=== PATIENT | female | born 1935 | race Caucasian/White ===

== ENCOUNTER 2016-05-27 15:42 | Inpatient (IN) | payer MEDICARE ==
[~2016-05-27] VITALS: Ht 154.9 cm; Wt 61.6 kg
[~2016-05-27 15:42] MED LIST: CARB200T14 PO; ESTR1TAB PO; FIORIC PO; HYDR-2768 PO; LORA1TAB PO; MINO50TA PO; PRAV40TA2 PO; SUMA25TA2 PO; SYNT50TA PO; WAL-10TA2 PO
[2016-05-27 15:59] VITALS: BP 208/96; PULSE 68; RESP 20; TEMP 98.6; O2SAT 100
[2016-05-27 16:10] VITALS: BP 174/97; PULSE 64; RESP 16; O2SAT 98
--- NOTE | 2016-05-27 16:12 | PD ---
HPI Chief Complaint: Syncope/Near-Syncope Time Seen by Provider: 15:46 Travel History International Travel<30 days: No Contact w/Intl Traveler<30days: No Traveled to known affect area: No History of Present Illness HPI This is a 58-year-old female who has a history of mitral valve prolapse presents to the emergency department having had 2 episodes of syncope in the past 2 weeks. She says her first episode occurred on May 09. She was seen at [facility] where she had an EKG, labs and a chest x-ray as well as a CT scan performed all which were reassuring. She was not kept overnight and was discharged. She tried to follow-up with Dr. Mix who ordered an outpatient Holter monitor and an echo but was unable to see her in the office because he was on vacation. She subsequently had a second episode of syncope this weekend when she was going to talk to her neighbors. She said she felt dizzy all of a sudden and then passed out. She didn't hit her head at that time. She had no associated chest pain or shortness of breath. She also has had blood pressure that's been running high in the 180s to 200s at home. She didn't want to come to the hospital but her neighbors were very concerned about her and called EMS who took her to the emergency department. PFSH Past Medical History Cardiovascular Problems: Yes Respiratory: Yes ?: Not Past Surgical History Gynecologic Surgery: Yes (left breast bx 1969, 1999 AND 2013; HYSTERECTOMY 1976 ) Hysterectomy: Yes (TOTAL) Social History Alcohol Use: No Tobacco Use: Yes (2ppweek) Substance Use: No Allergies-Medications (Allergen,Severity, Reaction): Coded Allergies: No Known Allergies (Unverified , 11/01/13) Reported Meds & Prescriptions Reported Meds & Active Scripts Active Reported Carbamazepine Er (Carbamazepine) 200 Mg Cap 100 Mg PO BID Minocycline Hcl (Minocycline HCl) 50 Mg Cap 50 Mg PO BID Pravachol 40 Mg Tab (Pravastatin Sodium) 40 Mg Tab 40 Mg PO DAILY Synthroid (Levothyroxine Sodium) 50 Mcg Tab 50 Mcg PO DAILY Hctz (Hydrochlorothiazide) 25 Mg Tab 25 Mg PO DAILY Lorazepam 1 Mg Tab 1 Mg PO HS Estradiol 1 Mg Tab 1 Mg PO DAILY Loratadine 10 Mg Tab 10 Mg PO DAILY Fioricet Tab (Acetaminophen/Butalbital/Caffeine) 1 Tab Tab 1 Tab PO Q4H PRN Sumatriptan Succinate 25 Mg Tab 100 Mg PO ONCE Review of Systems Except as stated in HPI: all other systems reviewed are Neg Physical Exam Narrative GENERAL:Well appearing, no acute distress SKIN: Warm and dry. HEAD: Atraumatic. Normocephalic. EYES: Pupils equal and round. No injection or drainage. ENT: Moist mucous membranes NECK: Trachea midline. CARDIOVASCULAR: Regular rate and rhythm. No murmur appreciated. RESPIRATORY: Clear to auscultation. Breath sounds equal bilaterally. GASTROINTESTINAL: Abdomen soft, non-tender, nondistended. MUSCULOSKELETAL: No obvious deformities. NEUROLOGICAL: Awake and alert. No obvious cranial nerve deficits. Moving all extremities. PSYCHIATRIC: Appropriate mood and affect; insight and judgment normal. Data Data Last Documented VS Vital Signs Date Time Temp Pulse Resp B/P Pulse Ox O2 Delivery O2 Flow Rate FiO2 05/27/16 16:13 100 Room Air 05/27/16 16:10 64 16 174/97 05/27/16 15:59 98.6 Orders Complete Blood Count With Diff (05/27/16 16:01) Comprehensive Metabolic Panel (05/27/16 16:01) Magnesium (Mg) (05/27/16 16:01) B-Type Natriuretic Peptide (05/27/16 16:01) Troponin I (05/27/16 16:01) Urinalysis - C+S If Indicated (05/27/16 16:01) Ecg Monitoring (05/27/16 16:01) Iv Access Insert/Monitor (05/27/16 16:01) Oximetry (05/27/16 16:01) Sodium Chloride 0.9% Flush (Ns Flush) (05/27/16 16:15) Electrocardiogram (05/27/16 ) Enalaprilat Inj (Vasotec Inj) (05/27/16 17:00) Labs Laboratory Tests Test 05/27/16 05/27/16 16:20 16:31 White Blood Count 9.2 TH/MM3 Red Blood Count 4.25 MIL/MM3 Hemoglobin 13.2 GM/DL Hematocrit 39.5 % Mean Corpuscular Volume 92.7 FL Mean Corpuscular Hemoglobin 31.0 PG Mean Corpuscular Hemoglobin 33.4 % Concent Red Cell Distribution Width 14.1 % Platelet Count 265 TH/MM3 Mean Platelet Volume 9.7 FL Neutrophils (%) (Auto) 65.3 % Lymphocytes (%) (Auto) 26.1 % Monocytes (%) (Auto) 6.9 % Eosinophils (%) (Auto) 1.3 % Basophils (%) (Auto) 0.4 % Neutrophils # (Auto) 6.0 TH/MM3 Lymphocytes # (Auto) 2.4 TH/MM3 Monocytes # (Auto) 0.6 TH/MM3 Eosinophils # (Auto) 0.1 TH/MM3 Basophils # (Auto) 0.0 TH/MM3 CBC Comment DIFF FINAL Differential Comment Sodium Level 139 MEQ/L Potassium Level 3.8 MEQ/L Chloride Level 101 MEQ/L Carbon Dioxide Level 28.9 MEQ/L Anion Gap 9 MEQ/L Blood Urea Nitrogen 20 MG/DL Creatinine 0.82 MG/DL Estimat Glomerular Filtration 67 ML/MIN Rate Random Glucose 85 MG/DL Calcium Level 9.7 MG/DL Magnesium Level 2.0 MG/DL Total Bilirubin 0.4 MG/DL Aspartate Amino Transf 25 U/L (AST/SGOT) Alanine Aminotransferase 22 U/L (ALT/SGPT) Alkaline Phosphatase 53 U/L Troponin I LESS THAN 0.02 NG/ML B-Type Natriuretic Peptide 63 PG/ML Total Protein 7.5 GM/DL Albumin 4.2 GM/DL Urine Color LIGHT-YELLOW Urine Turbidity CLEAR Urine pH 6.5 Urine Specific [place] 1.005 Urine Protein NEG mg/dL Urine Glucose (UA) NEG mg/dL Urine Ketones NEG mg/dL Urine Occult Blood NEG Urine Nitrite NEG Urine Bilirubin NEG Urine Urobilinogen LESS THAN 2.0 MG/DL Urine Leukocyte Esterase NEG Urine RBC 1 /hpf Urine WBC 1 /hpf Microscopic Urinalysis Comment CULT NOT INDICATED MDM Medical Decision Making Medical Screen Exam Complete: Yes Emergency Medical Condition: Yes Interpretation(s) ekg: rbbb, inferior st depressions no leukocytosis electrolytes within normal limits troponin <.02 bnp 63 Differential Diagnosis Arrhythmia, valvular disease, congestive heart failure, dehydration, urinary tract infection Narrative Course This is an 80-year-old female who presents to the emergency department having had 2 episodes of syncope in the past 2 weeks. She also has been very weak and lightheaded per her neighbors and family and she's not acting herself. She's had persistently high blood pressure over the past several days. She has a history of mitral valve prolapse. She's been trying to get worked up as an outpatient with cardiology but she's been getting sicker republican getting her test completed. She was placed on a monitor and an IV was established. EKG demonstrates a right bundle branch block with some nonspecific ST changes. Labs are all reassuring with a normal troponin and BNP. I think patient requires observation on telemetry, echo, and syncope evaluation as an inpatient given she's had 2 episodes of syncope at this point and she seems to becoming increasingly symptomatic. Diagnosis Primary Impression: Syncope Qualified Code: R55 - Syncope, unspecified syncope type Admitting Information Admitting Physician Requests: Observation Zoila Singh MD May 27, 2016 16:12
[2016-05-27 16:13] VITALS: O2SAT 100
[2016-05-27] MEDS ORDERED: SODIUM CHLORIDE 0.9% FLUSH 5 ML FLUSH IVF PRN (16:15)
[2016-05-27 16:41] LABS: BASOPHIL % 0.4 % (0.0-2.0); EOSINOPHIL # 0.1 TH/MM3 (0-0.4); EOSINOPHIL % 1.3 % (0.0-4.0); HEMATOCRIT 39.5 % (35.0-46.0); HEMO FLAGS DIFF FINAL; LYMPH % 26.1 % (9.0-44.0); LYMPHOCYTE # 2.4 TH/MM3 (1.0-4.8); MEAN CELL VOLUME 92.7 FL (80.0-100.0); MEAN CORPUSCULAR HGB CONC 33.4 % (32.0-36.0); MONO % 6.9 % (0.0-8.0); NEUT % 65.3 % (16.0-70.0); PLATELET COUNT 265 TH/MM3 (150-450); RED BLOOD COUNT 4.25 MIL/MM3 (4.00-5.30); RED CELL DISTRIBUTION WIDTH 14.1 % (11.6-17.2); WHITE BLOOD COUNT 9.2 TH/MM3 (4.0-11.0)
[2016-05-27 16:46] LABS: BLOOD, URINE NEG (NEG); COMMENT (UR) CULT NOT INDICATED; CULTURE IF INDICATED CULT NOT INDICATED; GLUCOSE,URINE NEG (NEG); KETONE, URINE NEG (NEG); NITRITE,URINE NEG (NEG); PH, URINE 6.5 (5.0-8.5); URINE COLOR LIGHT-YELLOW (YELLW/STRAW)
[2016-05-27] MEDS ORDERED: ENALAPRILAT 2.5 MG/2 ML VIAL IV PUSH ONE (17:00)
[2016-05-27 17:13] LABS: ANION GAP 9 MEQ/L (5-15); AST (GOT) 25 U/L (15-37); BICARBONATE 28.9 MEQ/L (21.0-32.0); BLOOD UREA NITROGEN 20 MG/DL (7-18); CHLORIDE 101 MEQ/L (98-107); GLOMERULAR FILTRATION RATE 67 ML/MIN (>89); POTASSIUM 3.8 MEQ/L (3.5-5.1); SODIUM (NA) 139 MEQ/L (136-145)
[2016-05-27 17:46] LABS: ALKALINE PHOSPHATASE 53 U/L (45-117); ALT (GPT) 22 U/L (10-53); TOTAL BILIRUBIN ADULT 0.4 MG/DL (0.2-1.0)
[2016-05-27 18:00] VITALS: BP 180/97; PULSE 78; RESP 18; O2SAT 99
[2016-05-27] MEDS ORDERED: NALOXONE HCL 0.4 MG/ML AMP IV PRN (18:00)
[2016-05-27] MEDS ORDERED: ONDANSETRON HCL 4 MG/2 ML VIAL IVP PRN (18:00)
[2016-05-27] MEDS ORDERED: ACETAMINOPHEN 325 MG TAB PO PRN (18:00)
[2016-05-27] MEDS ORDERED: SODIUM CHLORIDE 0.9% FLUSH 5 ML FLUSH FLUSH PRN (18:00)
[2016-05-27] MEDS ORDERED: MAGNESIUM HYDROXIDE SUSP 30 ML CUP PO PRN (18:00)
[2016-05-27] MEDS ORDERED: LORA10TA PO (18:52)
[2016-05-27] MEDS ORDERED: SUMAtriptan SUCCINATE 50 MG TAB PO ONE (19:30)
[2016-05-27 19:46] LABS: FREE T4 1.32 NG/DL (0.76-1.46)
--- NOTE | 2016-05-27 19:46 | HHI.HP ---
HPI Service [facility] Hospitalists Primary Care Physician Golden Ring MD Admission Diagnosis syncope Chief Complaint: syncope Travel History International Travel<30 Days: No Contact w/Intl Traveler <30 Da: No Traveled to Known Affected Are: No History of Present Illness This is a 58-year-old female who has a history of mitral valve prolapse presents to the emergency department having had 2 episodes of syncope in the past 2 weeks. She says her first episode occurred on May 09. She was seen at [facility] where she had an EKG, labs and a chest x-ray as well as a CT scan performed all which were reassuring. She was not kept overnight and was discharged. She tried to follow-up with Dr. Mix who ordered an outpatient Holter monitor and an echo but was unable to see her in the office because he was on vacation. She subsequently had a second episode of syncope this weekend when she was going to talk to her neighbors. She said she felt dizzy all of a sudden and then passed out. She didn't hit her head at that time. She had no associated chest pain or shortness of breath. She also has had blood pressure that's been running high in the 180s to 200s at home. She didn't want to come to the hospital but her neighbors were very concerned about her and called EMS who took her to the emergency department. Review of Systems Constitutional: DENIES: Diaphoretic episodes, Fatigue, Fever, Weight gain, Weight loss, Chills, Dizziness, Change in appetite, Night Sweats Endocrine: DENIES: Heat/cold intolerance, Polydipsia, Polyuria, Polyphagia Eyes: DENIES: Blurred vision, Diplopia, Eye inflammation, Eye pain, Vision loss , Photosensitivity, Double Vision Ears, nose, mouth, throat: DENIES: Tinnitus, Hearing loss, Vertigo, Nasal discharge, Oral lesions, Throat pain, Hoarseness, Ear Pain, Running Nose, Epistaxis, Sinus Pain, Toothache, Odynophagia Respiratory: DENIES: Apneas, Cough, Snoring, Wheezing, Hemoptysis, Sputum production, Shortness of breath Cardiovascular: DENIES: Chest pain, Palpitations, Syncope, Dyspnea on Exertion , PND, Lower Extremity Edema, Orthopnea, Claudication Gastrointestinal: DENIES: Abdominal pain, Black stools, Bloody stools, BRB per rectum, Constipation, Diarrhea, GERD, Nausea, Reflux, Vomiting, Difficulty Swallowing, Anorexia Genitourinary: DENIES: Sexual dysfunction, Urinary frequency, Urinary incontinence, Urgency, Hematuria, Dysuria, Nocturia Musculoskeletal: DENIES: Joint pain, Muscle aches, Stiffness, Joint Swelling, Back pain, Neck pain Hematologic/lymphatic: DENIES: Bruising, Lymphadenopathy Immunologic/allergic: DENIES: Eczema, Urticaria Neurologic: DENIES: Abnormal gait, Headache, Localized weakness, Paresthesias, Seizures, Speech Problems, Tremor, Poor Balance Psychiatric: DENIES: Anxiety, Confusion, Mood changes, Depression, Hallucinations, Agitation, Suicidal Ideation, Homicidal Ideation, Delusions, History of Bipolar, History of Schizophrenia Past Family Social History Past Medical History - hyperlipidemia - COPD - anxiety Reported Medications Reported Meds & Active Scripts Active Reported Loratadine 10 Mg Tab 10 Mg PO DAILY Allergies: Coded Allergies: No Known Allergies (Unverified , 11/01/13) Family History non- contributory Social History - smoker - no etoh - no illicit drugs Physical Exam Vital Signs Vital Signs Date Time Temp Pulse Resp B/P Pulse Ox O2 Delivery O2 Flow Rate FiO2 05/27/16 18:00 78 18 180/97 99 Room Air 05/27/16 17:49 64 99 Room Air 05/27/16 16:13 100 Room Air 05/27/16 16:10 64 16 174/97 98 Room Air 05/27/16 15:59 98.6 68 20 208/96 100 Physical Exam GENERAL: This is a well-nourished, well-developed patient, in no apparent distress. SKIN: No rashes, ecchymoses or lesions. Cool and dry. HEAD: Atraumatic. Normocephalic. No temporal or scalp tenderness. EYES: Pupils equal round and reactive. Extraocular motions intact. No scleral icterus. No injection or drainage. ENT: Nose without bleeding, purulent drainage or septal hematoma. Throat without erythema, tonsillar hypertrophy or exudate. Uvula midline. Airway patent. NECK: Trachea midline. No JVD or lymphadenopathy. Supple, nontender, no meningeal signs. CARDIOVASCULAR: Regular rate and rhythm without murmurs, gallops, or rubs. RESPIRATORY: Clear to auscultation. Breath sounds equal bilaterally. No wheezes , rales, or rhonchi. GASTROINTESTINAL: Abdomen soft, non-tender, nondistended. No hepato-splenomegaly , or palpable masses. No guarding. MUSCULOSKELETAL: Extremities without clubbing, cyanosis, or edema. No joint tenderness, effusion, or edema noted. No calf tenderness. Negative Homans sign bilaterally. NEUROLOGICAL: Awake and alert. Cranial nerves II through XII intact. Motor and sensory grossly within normal limits. Five out of 5 muscle strength in all muscle groups. Normal speech. Laboratory Laboratory Tests Test 05/27/16 05/27/16 05/27/16 16:20 16:31 18:40 White Blood Count 9.2 Red Blood Count 4.25 Hemoglobin 13.2 Hematocrit 39.5 Mean Corpuscular Volume 92.7 Mean Corpuscular Hemoglobin 31.0 Mean Corpuscular Hemoglobin 33.4 Concent Red Cell Distribution Width 14.1 Platelet Count 265 Mean Platelet Volume 9.7 Neutrophils (%) (Auto) 65.3 Lymphocytes (%) (Auto) 26.1 Monocytes (%) (Auto) 6.9 Eosinophils (%) (Auto) 1.3 Basophils (%) (Auto) 0.4 Neutrophils # (Auto) 6.0 Lymphocytes # (Auto) 2.4 Monocytes # (Auto) 0.6 Eosinophils # (Auto) 0.1 Basophils # (Auto) 0.0 CBC Comment DIFF FINAL Differential Comment Sodium Level 139 Potassium Level 3.8 Chloride Level 101 Carbon Dioxide Level 28.9 Anion Gap 9 Blood Urea Nitrogen 20 Creatinine 0.82 Estimat Glomerular Filtration 67 Rate Random Glucose 85 Calcium Level 9.7 Magnesium Level 2.0 Total Bilirubin 0.4 Aspartate Amino Transf 25 (AST/SGOT) Alanine Aminotransferase 22 (ALT/SGPT) Alkaline Phosphatase 53 Troponin I LESS THAN 0.02 B-Type Natriuretic Peptide 63 Total Protein 7.5 Albumin 4.2 Urine Color LIGHT-YELLOW Urine Turbidity CLEAR Urine pH 6.5 Urine Specific [place] 1.005 Urine Protein NEG Urine Glucose (UA) NEG Urine Ketones NEG Urine Occult Blood NEG Urine Nitrite NEG Urine Bilirubin NEG Urine Urobilinogen LESS THAN 2.0 Urine Leukocyte Esterase NEG Urine RBC 1 Urine WBC 1 Microscopic Urinalysis Comment CULT NOT INDICATED Ammonia LESS THAN 10 Result Diagram: 05/27/16 1620 05/27/16 1620 Septic Shock Reassessment Heart: Regular rate and rhythm Lungs: Clear Skin: Warm Peripheral Pulses: Bounding Right Radial Bounding Left Radial Bounding Right Popliteal Bounding Left Popliteal Bounding Right Dorsalis Pedis Bounding Left Dorsalis Pedis Bounding Right Posterior Tibial Bounding Left Posterior Tibial Capillary Refill: Brisk Assessment and Plan Problem List: (1) Syncope Status: Acute Plan: - obtain echocardiogram - obtain holter monitor - observe on telemetry - no anemia - obtain TSH, free T4, b12, folate, rpr - PT evaluation (2) Hypothyroid Status: Acute Plan: - synthroid (3) HTN (hypertension) Status: Acute Plan: - hctz (4) Migraine Status: Acute Plan: - fioricet, tegretol Physician Certification 2 Midnight Certification Type: Admission for Inpatient Services Order for Inpatient Services The services are ordered in accordance with Medicare regulations or non- Medicare payer requirements, as applicable. In the case of services not specified as inpatient-only, they are appropriately provided as inpatient services in accordance with the 2-midnight benchmark. Estimated LOS (days): 3 3 days is the estimated time the patient will need to remain in the hospital, assuming treatment plan goals are met and no additional complications. Post-Hospital Plan: Not yet determined Problem Qualifiers (1) Syncope: Qualified Code: R55 - Syncope, unspecified syncope type (2) Hypothyroid: Qualified Code: E03.9 - Hypothyroidism, unspecified type (3) HTN (hypertension): Qualified Code: I10 - Essential hypertension (4) Migraine: Richard Marcos DO May 27, 2016 19:45
[2016-05-27] MEDS ORDERED: ENALAPRILAT 1.25 MG/ML VIAL IV PRN (20:45)
[2016-05-27] MEDS ORDERED: cloNIDine HCL 0.2 MG TAB PO PRN (20:45)
[2016-05-27] MEDS ORDERED: CARBAMAZEPINE 100 MG PO SCH (21:00)
[2016-05-27] MEDS: LORazepam 1 MG TAB PO SCH (21:00)
[2016-05-27] MEDS: SODIUM CHLORIDE 0.9% FLUSH 5 ML FLUSH FLUSH SCH (21:30)
[2016-05-27] MEDS: PRAVASTATIN SOD 40 MG TAB PO SCH (21:30)
[2016-05-27] MEDS: MINOCYCLINE HCL 50 MG CAP PO SCH (21:31)
[2016-05-27] MEDS ORDERED: LEVO.05 PO (23:15)
[2016-05-27] MEDS ORDERED: HYDR25TA5 PO (23:15)
[2016-05-27] MEDS ORDERED: BIOT50005 PO (23:15)
[2016-05-27] MEDS ORDERED: PRAV40TA2 PO (23:15)
[2016-05-27] MEDS ORDERED: MIRTA15 PO (23:15)
[2016-05-27] MEDS ORDERED: MAGN400C2 (23:15)
[2016-05-27] MEDS ORDERED: MULT1CHW70 (23:15)
[2016-05-27 23:59] VITALS: BP 122/66; PULSE 71; RESP 18; O2SAT 99
--- NOTE | 2016-05-27 23:59 | RADRPT ---
EXAM DATE/TIME: 05/27/2016 22:13 [facility] COMPARISON: No previous studies available for comparison. INDICATIONS : Syncope. MEDICAL HISTORY : Hypertension. Mitral valve prolapse. SURGICAL HISTORY : Hysterectomy. Left breast biopsy. ENCOUNTER: Initial ACUITY: 1 day PAIN SCORE: 0/10 LOCATION: Bilateral neck PEAK SYSTOLIC VELOCITIES (cm/sec): ICA/CCA RATIO: Right: 1.5 Left: 1.0 ICA: Right: 92 Left: 77 CCA: Right: 62 Left: 76 ECA: Right: 42 Left: 58 VERTEBRAL: Right: 51 antegrade Left: 32 antegrade Elevated flow velocities and ICA/CCA ratios have been found to correlate with increased degrees of vessel stenosis, calculated as percentage of diameter relative to a normal segment of distal ICA/CCA FINDINGS: RIGHT CAROTID: No significant stenosis is visualized. The waveforms are within normal limits. LEFT CAROTID: No significant stenosis is visualized. The waveforms are within normal limits. VERTEBRAL ARTERIES: Antegrade flow is seen in both vertebral arteries. MISCELLANEOUS: None. CONCLUSION: No evidence of flow-limiting carotid stenosis. Husam Durand MD on May 27, 2016 at 23:56 Board Certified Radiologist. This report was verified electronically.
[2016-05-28] VITALS (8 sets, daily range): BP systolic 89–134; BP diastolic 52–77; PULSE 60–84; RESP 16–18; TEMP 97.4–98.4; O2SAT 94–98
[2016-05-28] MEDS: ACETAMIN 325 MG/BUTALBITAL 50 MG/CAFFEINE 40 MG TAB PO PRN ×2 (04:02→20:58)
[2016-05-28] MEDS: LEVOTHYROXINE SODIUM 50 MCG TAB PO SCH (05:30)
[2016-05-28] MEDS ORDERED: ASPI1TAB69 PO (08:36)
[2016-05-28] MEDS: SODIUM CHLORIDE 0.9% FLUSH 5 ML FLUSH FLUSH SCH ×2 (08:38→21:21)
[2016-05-28] MEDS: HYDROCHLOROTHIAZIDE 25 MG TAB PO SCH (08:39)
[2016-05-28] MEDS: PRAVASTATIN SOD 40 MG TAB PO SCH (08:42)
[2016-05-28] MEDS: LORATADINE 10 MG TAB PO SCH (08:42)
[2016-05-28] MEDS: MINOCYCLINE HCL 50 MG CAP PO SCH ×4 (09:00→20:56)
[2016-05-28 10:35] LABS: RAPID PLASMA REAGIN SCREEN NON-REACTIVE (NON-REACTVE)
--- NOTE | 2016-05-28 10:36 | EKG ---
Date Performed: 05/27/2016 Time Performed: 16:14:59 PTAGE: 80 years EKG: Sinus rhythm POSSIBLE LEFT ATRIAL ENLARGEMENT BORDERLINE LEFT AXIS DEVIATION RIGHT BUNDLE BRANCH BLOCK ABNORMAL E CG NO PREVIOUS TRACING DOCTOR: Akil Beckford Interpretating Date/Time 05/28/2016 10:34:06
--- NOTE | 2016-05-28 14:23 | HHI.PR ---
Subjective Remarks No syncopal episodes since admission. Objective Vitals Vital Signs Date Time Temp Pulse Resp B/P Pulse Ox O2 Delivery O2 Flow Rate FiO2 05/28/16 12:00 97.7 75 18 110/60 95 05/28/16 10:19 63 05/28/16 08:00 97.8 60 18 131/77 98 05/28/16 07:42 Room Air 05/28/16 03:38 61 05/28/16 03:18 Room Air 05/28/16 02:55 97.4 62 16 134/67 97 05/27/16 23:59 71 18 122/66 99 Room Air 05/27/16 18:00 78 18 180/97 99 Room Air 05/27/16 17:49 64 99 Room Air 05/27/16 16:13 100 Room Air 05/27/16 16:10 64 16 174/97 98 Room Air 05/27/16 15:59 98.6 68 20 208/96 100 05/27/16 05/27/16 05/28/16 15:00 23:00 07:00 Intake Total 120 ml Output Total 100 ml Balance 20 ml Intake Oral 120 ml Output Urine Total 100 ml # Bowel Movements 0 Result Diagram: 05/27/16 1620 05/27/16 1620 Imaging Last Impressions Carotid Artery Ultrasound 05/27/16 0000 Signed Impressions: Service Date/Time: Friday, May 27, 2016 22:13 - CONCLUSION: No evidence of flow-limiting carotid stenosis. Husam Durand MD Objective Remarks GENERAL: This is a well-nourished, well-developed patient, in no apparent distress. CARDIOVASCULAR: Regular rate and rhythm without murmurs, gallops, or rubs. RESPIRATORY: Clear to auscultation. Breath sounds equal bilaterally. No wheezes , rales, or rhonchi. GASTROINTESTINAL: Abdomen soft, non-tender, nondistended. Normal active bowel sounds MUSCULOSKELETAL: Extremities without clubbing, cyanosis, or edema. NEURO: Alert & Oriented x4 to person, place, time, situation. 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
[2016-05-28] MEDS ORDERED: GADODIAMIDE PF 287 MG/ML 10 ML VIAL (for RAD MRI) IV ONE (16:41)
--- NOTE | 2016-05-28 17:04 | RADRPT ---
EXAM DATE/TIME: 05/28/2016 16:07 [facility] COMPARISON: No previous studies available for comparison. INDICATIONS : Syncope. CONTRAST: 10 cc Omniscan (gadodiamide) IV MEDICAL HISTORY : Chronic obstructive pulmonary disease. SURGICAL HISTORY : Hysterectomy. Inguinal hernia repair. ENCOUNTER: Subsequent ACUITY: 3 day PAIN SCORE: 0/10 LOCATION: Head TECHNIQUE: Multiplanar, multisequence MRI of the brain was performed both prior to and following the administrat ion of paramagnetic contrast. FINDINGS: CEREBRUM: The ventricles are normal for age. Mild, symmetric bilateral cortical atrophy. No evidence of midlin e shift, mass lesion, hemorrhage or acute infarction. No extraaxial fluid collections are seen. The pituitary gland and suprasellar cistern are normal in configuration. WHITE MATTER: Mild periventricular areas of increased T2 flair signal intensity are characteristic of a mild perive ntricular small vessel consolidation. POSTERIOR FOSSA: The cerebellum and brainstem are intact. The 4th ventricle is midline. The cerebellopontine angle is unremarkable. The cerebellar tonsils are normal in position. DIFFUSION IMAGING: No focal areas of restricted diffusion are seen. No evidence of acute infarction. EXTRACRANIAL: The visualized portions of the orbits and paranasal sinuses are unremarkable. POST-CONTRAST: No abnormal areas of parenchymal or dural enhancement. No evidence of blood-brain barrier breakdown. CONCLUSION: 1. Chronic changes with some symmetric cortical atrophy and mild periventricular small vessel ischemi c demyelination. 2. No acute intracranial process to explain current clinical symptoms. Jona Sanders MD on May 28, 2016 at 16:58 Board Certified Radiologist. This report was verified electronically.
--- NOTE | 2016-05-28 17:45 | MB ---
cc: ELROY BECKN DATE OF CONSULTATION 05/28/16 REASON FOR CONSULTATION Consideration of permanent pacemaker implantation. HISTORY OF PRESENT ILLNESS The patient is an 80-year-old white female with a history of mitral valve prolapse dating back at least 25 years, history of hyperlipidemia, COPD who presented to the hospital after a syncopal episode. She actually has had two syncopal episodes in the last two weeks. Two weeks ago she was walking, on her way to go to bed, when she developed severe lightheadedness followed shortly thereafter by loss of consciousness. She was by herself at that time and is unsure of the duration of the episode. When she regained consciousness, there was no disorientation, bowel or urinary incontinence. Prior to the loss of consciousness, she had some vaguely described palpitations. Chronically, she has had occasional palpitations, again vaguely described, possibly "fluttering". About three days ago, the patient had another episode of syncope, this time witnessed by a neighbor. She was once again standing and had preceding palpitations. She thinks she was unconscious for just a few seconds. She denies chest pains, change in chronic mild dyspnea, fevers, headache, pedal edema, paroxysmal nocturnal dyspnea. PAST MEDICAL HISTORY As above. MEDICATIONS Her cardiac medications at home none. ALLERGIES NO KNOWN DRUG ALLERGIES. FAMILY HISTORY The patient's sister underwent pacemaker implantation. There is no family history of early myocardial infarction. SOCIAL HISTORY The patient smokes about a pack of cigarettes per week. She denies drug or alcohol abuse. REVIEW OF SYSTEMS As in the history of present illness otherwise negative or noncontributory. She also denies visual changes, unilateral weakness or numbness, abdominal pain, melena, dyspepsia, bright red blood per rectum. PHYSICAL EXAMINATION VITAL SIGNS: Blood pressure 110/60 with a pulse of 75, respirations 18. GENERAL: She is a well-developed, well-nourished white female in no acute distress HEENT: Jugular venous pressure is normal. Carotid pulses are 2+ bilaterally and without bruits. CHEST: Examination of the chest reveals clear lung grewal. CARDIAC: She has a regular rhythm and rate with a grade 1/6 systolic ejection murmur heard at the right upper sternal border. No definite click or gallop is audible. ABDOMEN: She has a soft, nontender abdomen. Bowel sounds are present. There is no definite hepatosplenomegaly. EXTREMITIES: No clubbing, cyanosis or edema. LABORATORY DATA Normal CBC, normal basic metabolic profile. Troponin less than 0.02, CK 63. CARDIOLOGY STUDIES Electrocardiogram (unable to pull up the image) but reportedly shows sinus rhythm, left atrial abnormality, right bundle-branch block. IMPRESSION Two syncopal episodes in the last two weeks in this 80-year-old white female with a history of mitral valve prolapse, COPD, hyperlipidemia. I suspect her syncopal episodes were due to episodes of asystole or high degree AV block. On monitoring strips here in the hospital, she demonstrates episodic 2:1 AV block. It is probably second-degree AV block type I, although it is difficult to rule out type II. These episodes do result in drops in her heart rate. She has had occasional drops into the 30s. In addition, she reports intermittent lightheadedness while in her room since coming into the hospital. Because of the symptomatic bradycardia, I have recommended she undergo permanent pacemaker implantation. The nature of this procedure and potential risks including but not limited to cardiac perforation, pneumothorax, bleeding, infection have been outlined to the patient. She agrees to proceed. RECOMMENDATIONS Dual-chamber permanent pacemaker implantation tomorrow morning. Thank you very much for the consultation. MD MANISHA Storey/ /3:41 PM /5:36 PM FLEX
--- NOTE | 2016-05-28 19:01 | EC ---
Study Study Date:05/28/2016 STUDY CONCLUSIONS SUMMARY - Left ventricle: The cavity size was normal. Wall thickness was normal. Systolic function was normal. The estimated ejection fraction was in the range of 55% to 60%. Wall motion was normal; there were no regional wall motion abnormalities. - Aortic valve: Valve area: 2.04cm^2(VTI). Valve area: 2.31cm^2 (Vmax). - Mitral valve: Mild regurgitation. - Tricuspid valve: Mild regurgitation. If LV function is below 40, please consider prescribing an ACEI or ARB or document rationale for non-use. PROCEDURE DATA STUDY STATUS: Elective. Procedure: Transthoracic echocardiography. Image quality was good. Scanning was performed from the parasternal, apical, and subcostal acoustic windows. Study completion: The patient tolerated the procedure well. Transthoracic echocardiography. M-mode, complete 2D, complete spectral Doppler, and color Doppler. Height: Height: 61in. Weight: Weight: 120.7lb. Body mass index: BMI: 22.9kg/m^2. Body surface area: BSA: 1.53m^2. Patient status: Inpatient. CARDIAC ANATOMY LEFT VENTRICLE: The cavity size was normal. Wall thickness was normal. Systolic function was normal. The estimated ejection fraction was in the range of 55% to 60%. Wall motion was normal; there were no regional wall motion abnormalities. AORTIC VALVE: Trileaflet; normal thickness leaflets. Doppler: Transvalvular velocity was within the normal range. There was no stenosis. No regurgitation. Valve area: 2.04cm^2(VTI). Indexed valve area: 1.33cm^2/m^2 (VTI). Valve area: 2.31cm^2 (Vmax). Indexed valve area: 1.51cm^2/m^2 (Vmax). Mean gradient: 3mm Hg (S). AORTA: Aortic root: The aortic root was normal in size. MITRAL VALVE: Structurally normal valve. Doppler: Transvalvular velocity was within the normal range. There was no evidence for stenosis. Mild regurgitation. LEFT ATRIUM: The atrium was normal in size. RIGHT VENTRICLE: The cavity size was normal. Wall thickness was normal. PULMONIC VALVE: Doppler: Transvalvular velocity was within the normal range. There was no evidence for stenosis. No regurgitation. TRICUSPID VALVE: Structurally normal valve. Doppler: Transvalvular velocity was within the normal range. Mild regurgitation. PULMONARY ARTERY: The main pulmonary artery was normal-sized. Systolic pressure was within the normal range. RIGHT ATRIUM: The atrium was normal in size. PERICARDIUM: There was no pericardial effusion. SYSTEMIC VEINS: Inferior vena cava: The vessel was normal in size. Patient weight: 120.7lb _Ejection fraction:_ 65-75% _Fractional shortening:_ 32% up to 5Kg 5-11.5Kg 11.6-22.9Kg 23-45Kg 45-57Kg Aortic Root 7-13 <17 13-22 17-27 17-27 LA diam 6-13 <23 24-38 33-47 37-40 RVID 10-17 7-15 7-15 7-18 8-17 LVIDd 12-22 <32 24-38 33-47 37-40 LVPW 2-4 3-6 5-7 6-8 7-8 IVS 2-4 3-6 5-7 6-8 7-8 BASIC MEASUREMENTS ADULT NORMAL Left ventricle LV internal dimension, ED, chordal *40.5 mm 43-52 level, PLAX LV internal dimension, ES, chordal 30.9 mm 23-38 level, PLAX Fractional shortening, chordal level, *24 % >29 PLAX LV posterior wall thickness, ED 8.76 mm IVS/LVPW ratio, ED 0.96 <1.3 Ventricular septum Septal thickness, ED 8.41 mm Aortic valve Leaflet separation 18 mm 15-26 Aorta Root diameter, ED 35 mm Left atrium Anterior-posterior dimension 19 mm Anterior-posterior dimension index 1.24 cm/m^2 <2.2 BASIC MEASUREMENTS ADULT NORMAL Aortic valve Leaflet separation 18 mm 15-26 DOPPLER MEASUREMENTS ADULT NORMAL Main pulmonary artery Pressure, S 23 mm Hg =30 Aortic valve Peak velocity, S 121 cm/s Mean velocity, S 86.8 cm/s VTI, S 24.1 cm Mean gradient, S 3 mm Hg Valve area, VTI 2.04 cm^2 Valve area index, VTI 1.33 cm^2/m^2 Valve area, Vmax 2.31 cm^2 Valve area index, Vmax 1.51 cm^2/m^2 Regurgitant velocity, ED 389 cm/s Regurgitant deceleration 1580 cm/s^2 Regurgitant pressure half-time 722 ms Regurgitant gradient, ED 61 mm Hg Mitral valve Peak E-wave velocity 48.9 cm/s Peak A-wave velocity 97.7 cm/s Deceleration time *271 ms 150-230 Peak E/A ratio 0.5 Tricuspid valve Regurgitant peak velocity 219 cm/s Peak RV-RA gradient, S 19 mm Hg Maximal regurgitant velocity 219 cm/s Systemic veins Estimated CVP 5 mm Hg Right ventricle RV pressure, S 24 mm Hg <30 Pulmonic valve Peak velocity, S 47.9 cm/s LEGEND: Mean values are shown as u=mean value. Asterisk (*) leger values outside specified normal range. Prepared and signed by Gera Villarreal [id number]
[2016-05-28] MEDS: MUPIROCIN 2% OINT 1 APPLIC/GM SYR EACH NARE SCH (20:56)
[2016-05-28] MEDS: POVIDONE IODINE 5% (ANTISEPSIS KIT) 4 APPLICATIONS TOPICAL SCH (20:59)
[2016-05-28] MEDS: CHLORHEXIDINE GLUCONATE 2 % 1 PACK (2 CLOTHS) TOPICAL SCH (20:59)
[2016-05-28] MEDS: LORazepam 1 MG TAB PO SCH (21:21)
[2016-05-29] VITALS (7 sets, daily range): BP systolic 82–133; BP diastolic 58–82; PULSE 62–78; RESP 16; TEMP 95–98.2; O2SAT 95–97
[2016-05-29] MEDS: CEFAZOLIN IV SCH ×2 (04:40→07:40)
[2016-05-29] MEDS: SODIUM CHLORIDE 0.9% IV SCH ×2 (04:40→07:40)
[2016-05-29] MEDS ORDERED: VANCOMYCIN INJ 1,000 MG in SODIUM CHLOR 0.9% 250 ML INJ 250 ML IV SCH (06:00)
[2016-05-29] MEDS ORDERED: LIDOCAINE HCL 2% 50 ML VIAL ONE (07:15)
[2016-05-29] MEDS ORDERED: VANCOMYCIN 500 MG VIAL ONE (07:15)
[2016-05-29] MEDS ORDERED: MIDAZOLAM HCL 5 MG/5 ML VIAL ONE (07:40)
[2016-05-29] MEDS ORDERED: ZOLPIDEM TARTRATE 5 MG TAB PO PRN (08:45)
[2016-05-29] MEDS: HYDROCHLOROTHIAZIDE 25 MG TAB PO SCH (09:00)
--- NOTE | 2016-05-29 10:56 | RADRPT ---
EXAM DATE/TIME: 05/29/2016 10:20 [place] COMPARISON: No previous studies available for comparison. INDICATIONS : Evaluate for pneumothorax. Post pacemaker insertion. MEDICAL HISTORY : Chronic obstructive pulmonary disease. SURGICAL HISTORY : Hysterectomy. Inguinal hernia repair. ENCOUNTER: Subsequent ACUITY: 1 day PAIN SCORE: 5/10 LOCATION: Bilateral chest FINDINGS: A single view of the chest demonstrates the lungs to be symmetrically aerated without evidence of mas s, infiltrate or effusion. The heart size is enlarged. There is no pneumothorax. There is a pacemake r overlying the left chest. Osseous structures are intact. There are degenerative changes of the thor acic spine. CONCLUSION: 1. No evidence of pneumothorax. 2. Pacemaker on left side of chest. 3. Mild compensated cardiomegaly. Addy Chawla MD on May 29, 2016 at 10:54 Board Certified Radiologist. This report was verified electronically.
[2016-05-29] MEDS: MINOCYCLINE HCL 50 MG CAP PO SCH ×2 (11:06→22:14)
[2016-05-29] MEDS: LEVOTHYROXINE SODIUM 50 MCG TAB PO SCH (11:06)
[2016-05-29] MEDS: PRAVASTATIN SOD 40 MG TAB PO SCH (11:06)
[2016-05-29] MEDS: LORATADINE 10 MG TAB PO SCH (11:07)
[2016-05-29] MEDS: traMADol HCL 50 MG TAB PO PRN ×2 (11:07→22:24)
[2016-05-29] MEDS: SODIUM CHLORIDE 0.9% FLUSH 5 ML FLUSH FLUSH SCH ×2 (11:13→22:15)
--- NOTE | 2016-05-29 13:59 | HHI.PR ---
Subjective Remarks Pt had PPM today with Dr. Heath. Pt has NO new complaints. Objective Vitals Vital Signs Date Time Temp Pulse Resp B/P Pulse Ox O2 Delivery O2 Flow Rate FiO2 05/29/16 12:00 97.6 78 16 133/82 97 05/29/16 09:33 64 05/29/16 09:30 Room Air 05/29/16 08:00 95.0 62 16 116/69 96 05/29/16 04:30 97.4 62 16 82/58 97 98/62 05/28/16 23:58 97.9 60 16 89/52 95 96/60 05/28/16 21:00 Room Air 05/28/16 20:35 98.1 71 16 89/55 94 05/28/16 16:00 98.4 84 18 93/55 97 05/28/16 05/28/16 05/29/16 15:00 23:00 07:00 Intake Total 360 ml 482 ml 0 ml Output Total 700 ml 200 ml Balance 360 ml -218 ml -200 ml Intake Oral 360 ml 480 ml 0 ml IV Total 2 ml Output Urine Total 700 ml 200 ml # Voids 4 # Bowel Movements 1 0 0 Result Diagram: 05/27/16 1620 05/27/16 1620 Imaging Last Impressions Chest X-Ray 05/29/16 0000 Signed Impressions: Service Date/Time: Sunday, May 29, 2016 10:20 - CONCLUSION: 1. No evidence of pneumothorax. 2. Pacemaker on left side of chest. 3. Mild compensated cardiomegaly. Addy Chawla MD Brain MRI 05/28/16 0000 Signed Impressions: Service Date/Time: Saturday, May 28, 2016 16:07 - CONCLUSION: 1. Chronic changes with some symmetric cortical atrophy and mild periventricular small vessel ischemic demyelination. 2. No acute intracranial process to explain current clinical symptoms. Jona Sanders MD Carotid Artery Ultrasound 05/27/16 0000 Signed Impressions: Service Date/Time: Friday, May 27, 2016 22:13 - CONCLUSION: No evidence of flow-limiting carotid stenosis. Husam Durand MD Objective Remarks GENERAL: This is a well-nourished, well-developed patient, in no apparent distress. CARDIOVASCULAR: Regular rate and rhythm without murmurs, gallops, or rubs. RESPIRATORY: Clear to auscultation. Breath sounds equal bilaterally. No wheezes , rales, or rhonchi. GASTROINTESTINAL: Abdomen soft, non-tender, nondistended. Normal active bowel sounds MUSCULOSKELETAL: Extremities without clubbing, cyanosis, or edema. NEURO: Alert & Oriented x4 to person, place, time, situation. Moves all ext x4 A/P Problem List: (1) Syncope Status: Acute Plan: - obtain echocardiogram (05/28/16) --> EF 55-60% - holter monitor (05/24/16) - completed outpt - predominant rhythm is NSR - Review of telemetry (05/28/16): periods of bradycardia - no anemia - obtain TSH, free T4, b12, folate, rpr --> WNL - did well with PT - MRI brain (05/28/16) --> NO acute findings - PPM placed by Dr. Heath (05/29/16) - telemetry now showing paced rhythm - anticipate discharge to home 05/30/16 (2) Hypothyroid Status: Acute Plan: - synthroid (3) HTN (hypertension) Status: Acute Plan: - hctz (4) Migraine Status: Acute Plan: - fioricet, tegretol Problem Qualifiers (1) Syncope: Qualified Code: R55 - Syncope, unspecified syncope type (2) Hypothyroid: Qualified Code: E03.9 - Hypothyroidism, unspecified type (3) HTN (hypertension): Qualified Code: I10 - Essential hypertension (4) Migraine: Richard Marcos DO May 29, 2016 13:59 Richard Marcos DO May 29, 2016 13:59
[2016-05-29] MEDS ORDERED: VANCOMYCIN 1,000 MG/NS 250 ML IV ONE ×2 (20:45)
[2016-05-29] MEDS ORDERED: VANCOMYCIN INJ 1,000 MG in SODIUM CHLOR 0.9% 250 ML INJ 250 ML ONE (20:45)
[2016-05-29] MEDS: CHLORHEXIDINE GLUCONATE 2 % 1 PACK (2 CLOTHS) TOPICAL SCH (21:00)
[2016-05-29] MEDS: POVIDONE IODINE 5% (ANTISEPSIS KIT) 4 APPLICATIONS TOPICAL SCH (21:00)
[2016-05-29] MEDS: MUPIROCIN 2% OINT 1 APPLIC/GM SYR EACH NARE SCH (22:14)
[2016-05-29] MEDS: LORazepam 1 MG TAB PO SCH (22:14)
[2016-05-30 00:07] VITALS: BP 123/67; PULSE 83; RESP 16; TEMP 97.9; O2SAT 95
[2016-05-30 04:48] VITALS: BP 118/64; PULSE 67; RESP 16; TEMP 97.9; O2SAT 97
[2016-05-30] MEDS: LEVOTHYROXINE SODIUM 50 MCG TAB PO SCH (05:23)
[2016-05-30 08:10] VITALS: PULSE 65
[2016-05-30] MEDS: MINOCYCLINE HCL 50 MG CAP PO SCH (09:32)
[2016-05-30] MEDS: PRAVASTATIN SOD 40 MG TAB PO SCH (09:32)
--- NOTE | 2016-05-30 09:33 | PD.CARD.PN ---
Subjective Subjective Remarks Denies dyspnea, dizziness, palpitations. Mild incisional pain. Objective Medications Item Value Date Time Hydrochlorothiazide 25 mg 05/28/16 0900 (Hydrodiuril) DAILY/PO Pravastatin Sodium 40 mg 05/27/16 1815 (Pravachol) DAILY/PO 05/29/16 1106 Vital Signs / I&O Vital Signs Date Time Temp Pulse Resp B/P Pulse Ox O2 Delivery O2 Flow Rate FiO2 05/30/16 04:48 97.9 67 16 118/64 97 05/30/16 00:07 97.9 83 16 123/67 95 05/29/16 22:14 Room Air 05/29/16 21:37 73 05/29/16 21:18 98.2 78 16 107/63 97 05/29/16 16:00 98.1 75 16 118/65 95 05/29/16 12:00 97.6 78 16 133/82 97 05/29/16 09:33 64 05/29/16 09:30 Room Air I/O 05/29/16 05/29/16 05/29/16 05/30/16 05/30/16 05/30/16 07:00 15:00 23:00 07:00 15:00 23:00 Intake Total 0 ml 242 ml 360 ml 0 ml Output Total 200 ml 400 ml 600 ml 0 ml Balance -200 ml -158 ml -240 ml 0 ml Intake Oral 0 ml 240 ml 360 ml 0 ml IV Total 2 ml Output Urine Total 200 ml 400 ml 600 ml 0 ml # Voids 1 # Bowel Movements 0 0 0 Physical Exam GENERAL: Well developed, well nourished. No acute distress. HEENT: Jugular venous pressure is normal. CHEST: Lungs clear to auscultation bilaterally. Unlabored respiratory effort. Pacer site clean, dry, intact, no hematoma or tenderness. CARDIAC: Regular rate and rhythm without S3, S4, or murmur. ABDOMEN: Soft, nontender, no hepatosplenomegaly. Bowel sounds present. EXTREMITIES: No clubbing, cyanosis, or edema. Imaging Last 48 hours Impressions Chest X-Ray 05/29/16 0000 Signed Impressions: Service Date/Time: Sunday, May 29, 2016 10:20 - CONCLUSION: 1. No evidence of pneumothorax. 2. Pacemaker on left side of chest. 3. Mild compensated cardiomegaly. Addy Chawla MD Assessment and Plan Problem List: (1) Status post placement of cardiac pacemaker Assessment and Plan: Stable s/p DDD pacer implant for symptomatic SSS, 2nd degree AV block. Pacer site OK. Pacer re-interrogation shows stable, good pacing parameters. OK to discharge home today. Rec Levaquin 500 mg qd for 5 days, f/u next week to recheck incision, f/u with me 3-4 weeks (2) HTN (hypertension) Assessment and Plan: Normotensive. Consider stopping HCTZ. (3) Hyperlipidemia Assessment and Plan: Continues on statin therapy. Rec routine f/u, treatment by her PCP. Code Status full code Discussed Condition With patient Problem Qualifiers (1) HTN (hypertension): Qualified Code: I10 - Essential hypertension (2) Hyperlipidemia: Qualified Code: E78.5 - Hyperlipidemia, unspecified hyperlipidemia type Sav Heath MD May 30, 2016 09:33
[2016-05-30] MEDS: HYDROCHLOROTHIAZIDE 25 MG TAB PO SCH (09:34)
[2016-05-30] MEDS: LORATADINE 10 MG TAB PO SCH (09:34)
[2016-05-30] MEDS: SODIUM CHLORIDE 0.9% FLUSH 5 ML FLUSH FLUSH SCH (09:35)
[2016-05-30] MEDS ORDERED: LEVA500T PO (09:35)
--- NOTE | 2016-05-30 12:03 | HHI.FF ---
Face to Face Verification Diagnosis: (1) Syncope (2) Status post placement of cardiac pacemaker (3) HTN (hypertension) Home Health Nursing Order: Medical education Signs/symptoms of disease process Medication education-adverse effect Wound care and dressing changes Instructions: evaluate pacemaker site I have seen patient Diana An on 05/30/16. My clinical findings support the need for the requested home health care services because: Deconditioned w/ increased weakness Med compliance is questionable Limited ability to care for self Need for psychosocial assistance I certify that my clinical findings support that this patient is homebound because: Unsafe to leave home unassisted Need for psychosocial assistance Unable to use public transportation Richard Marcos DO May 30, 2016 12:03
--- NOTE | 2016-05-30 12:11 | HHI.DS ---
Discharge Summary Admission Date May 27, 2016 at 18:07 Admitting Diagnosis syncope (1) Status post placement of cardiac pacemaker Diagnosis: Principal (2) Syncope Diagnosis: Principal (3) Hypothyroid Diagnosis: Secondary (4) HTN (hypertension) Diagnosis: Secondary (5) Migraine Diagnosis: Secondary Consultants Dr. Twin Heath, Cardiology Brief History This is a 58-year-old female who has a history of mitral valve prolapse presents to the emergency department having had 2 episodes of syncope in the past 2 weeks. She says her first episode occurred on May 09. She was seen at [facility] where she had an EKG, labs and a chest x-ray as well as a CT scan performed all which were reassuring. She was not kept overnight and was discharged. She tried to follow-up with Dr. Mix who ordered an outpatient Holter monitor and an echo but was unable to see her in the office because he was on vacation. She subsequently had a second episode of syncope this weekend when she was going to talk to her neighbors. She said she felt dizzy all of a sudden and then passed out. She didn't hit her head at that time. She had no associated chest pain or shortness of breath. She also has had blood pressure that's been running high in the 180s to 200s at home. She didn't want to come to the hospital but her neighbors were very concerned about her and called EMS who took her to the emergency department. CBC/BMP: 05/27/16 1620 05/27/16 1620 Significant Findings Laboratory Tests Test 05/27/16 05/27/16 16:20 18:40 Blood Urea Nitrogen 20 MG/DL (7-18) Estimat Glomerular Filtration 67 ML/MIN (>89) Rate Troponin I LESS THAN 0.02 NG/ML (0.02-0.05) Ammonia LESS THAN 10 MCMOL/L (11-32) Folate GREATER THAN 20.0 NG/ML (3.1-17.5) PE at Discharge GENERAL: This is a well-nourished, well-developed patient, in no apparent distress. CARDIOVASCULAR: Regular rate and rhythm without murmurs, gallops, or rubs. RESPIRATORY: Clear to auscultation. Breath sounds equal bilaterally. No wheezes , rales, or rhonchi. GASTROINTESTINAL: Abdomen soft, non-tender, nondistended. Normal active bowel sounds MUSCULOSKELETAL: Extremities without clubbing, cyanosis, or edema. NEURO: Alert & Oriented x4 to person, place, time, situation. Moves all ext x4 Hospital Course (1) Syncope - echocardiogram (05/28/16) --> EF 55-60% - holter monitor (05/24/16) - completed outpt - predominant rhythm is NSR - Review of telemetry (05/28/16): periods of bradycardia - no anemia - TSH, free T4, b12, folate, rpr --> WNL - did well with PT - MRI brain (05/28/16) --> NO acute findings - PPM placed by Dr. Heath (05/29/16) - discharge to home - f/u with Dr. Heath in 3 weeks - will arrange for [facility] to assist with wound care (2) Hypothyroid Status: Acute Plan: - synthroid (3) HTN (hypertension) Status: Acute Plan: - hctz (4) Migraine Status: Acute Plan: - fioricet, tegretol Pt Condition on Discharge: Stable Discharge Disposition: Disch w/ Home Health Serv Discharge Instructions DIET: Follow Instructions for: Heart Healthy Diet Activities you can perform: Regular-No Restrictions Follow up Referrals: Cardiology - 3 Weeks with Sav Heath MD PCP Follow-up - [address] Golden Ring New Medications: Levofloxacin (Levaquin) 500 Mg Tab 500 MG PO DAILY Infection Days 5 Ref 0 TAB Continued Medications: Aspirin (Aspirin) 81 Mg Tabdr 81 MG PO DAILY TAB Biotin (Biotin) 5,000 Mcg Cap 5000 MCG PO #1 BOTTLE Hydrochlorothiazide (Hydrochlorothiazide) 25 Mg Tab 25 MG PO DAILY #30 Ref 0 TAB Levothyroxine (Synthroid) 50 Mcg Tab 50 MCG PO DAILY Thyroid #30 Ref 0 TAB Loratadine (Loratadine) 10 Mg Tab 10 MG PO DAILY Ref 0 TAB Magnesium Oxide (Magnesium Oxide) 400 Mg Cap Mirtazapine (Mirtazapine) 15 Mg Tab 15 MG PO HS Depression Control #30 Ref 0 TAB Multiple Vitamins W/ Minerals (Multivitamin Adult) 1 Chw Chw Pravastatin (Pravastatin) 40 Mg Tab 40 MG PO HS Cholesterol Management #30 Ref 0 TAB Additional Information Patient examined. Assessment and plan formulated with Aaynna De La Rosa PA-C. I agree with the above. Richard Marcos DO May 30, 2016 12:11
--- NOTE | 2016-05-30 12:12 | HHI.DCPOC ---
Discharge Care Plan Diagnosis: (1) Status post placement of cardiac pacemaker (2) Syncope (3) Hyperlipidemia (4) Migraine (5) HTN (hypertension) (6) Hypothyroid Goals to Promote Your Health * To prevent worsening of your condition and complications * To maintain your health at the optimal level Directions to Meet Your Goals Take your medications as prescribed Follow your dietary instruction Follow activity as directed Keep your appointments as scheduled Take your immunizations and boosters as scheduled If your symptoms worsen call your PCP, if no PCP go to Urgent Care Center or Emergency Room Smoking is Dangerous to Your Health. Avoid second hand smoke Call the 24-hour hour crisis hotline for domestic abuse at Richard Marcos DO May 30, 2016 12:12
--- NOTE | 2016-06-02 08:58 | MP ---
cc: JAIDEN SHETH MD, GLENN H. M.D. DATE OF SURGERY: 05/29/2016 PROCEDURE Dual-chamber permanent pacemaker implantation via the left subclavian vein. INDICATIONS Symptomatic sick sinus syndrome. OPERATIVE NOTE The patient was brought to the operating suite in a fasting state after having signed informed consent. The left upper chest was prepped and draped as per policy and anesthetized with 1% lidocaine. Central venous access was obtained via the left subclavian vein twice using modified Seldinger technique. A transverse incision was made inferior to the left clavicle and using blunt dissection a subcutaneous pocket was formed down to the pectoralis fascia. Over the more lateral guidewire a 7-Belarusian sheath was placed and through this sheath a ventricular active fixation lead was introduced and its tip positioned in the right ventricular apex where good current of injury, stimulation threshold (0.8 volts) and sensitivity (4.4 mV) were verified. This lead was secured into place using 2-0 silk ties down to the pectoralis fascia. Over the remaining guidewire another 7-Bel[place]ian sheath was placed and through this sheath an atrial active fixation lead was introduced and its tip positioned in the right atrial appendage where good current of injury, stimulation threshold (0.9 volts) and sensitivity (4.1 mV) were demonstrated. This lead was secured into place using 2-0 silk ties down to the pectoralis fascia. The leads were connected to the pacemaker generator which is a Biotronik Eluna device. The leads and the generator were placed back into the subcutaneous pocket which was closed using 3-0 Vicryl interrupted stitches in two layers to close the subcutaneous tissue and then 4-0 Monocryl running stitch to close the subcuticular tissue. Overlapping Steri-Strips and a pressure dressing were applied. There were no apparent immediate complications. A portable chest x-ray is pending at the time of this dictation. CONCLUSION Successful dual-chamber permanent pacemaker implantation via the left subclavian vein using an MRI compatible Biotronik Eluna pacemaker system. MD STEVE StoreyR/TLL /8:31 AM /8:49 AM FLEX
== END 2016-05-30 14:37 | disposition home health service (06) | DRG 244 ==
LOC: NEPE 15:42 → OBSVTOIN 18:07 → NEDA 18:07 → NEDH 22:11 → N04A 05-28 02:55
PROVIDERS: ADMIT Hospitalist; ATTEND Hospitalist
PROC: 02H63JZ Insertion of Pacemaker Lead into Right Atrium, Percutaneous Approach (ICD-10-PCS; 2016-05-29)
PROC: 02HK3JZ Insertion of Pacemaker Lead into Right Ventricle, Percutaneous Approach (ICD-10-PCS; 2016-05-29)
PROC: 0JH606Z Insertion of Pacemaker, Dual Chamber into Chest Subcutaneous Tissue and Fascia, Open Approach (ICD-10-PCS; principal; 2016-05-29 07:15)
DX: I49.5 Sick sinus syndrome (principal); J44.9 Chronic obstructive pulmonary disease, unspecified; I34.1 Nonrheumatic mitral (valve) prolapse; I10 Essential (primary) hypertension; E03.9 Hypothyroidism, unspecified; G43.909 Migraine, unspecified, not intractable, without status migrainosus; R55 Syncope and collapse; E78.5 Hyperlipidemia, unspecified; F17.210 Nicotine dependence, cigarettes, uncomplicated
CPT/HCPCS: 33208; 70553; 71010; 80053; 81001; 82140; 82607; 82746; 83735; 83880; 84439; 84443; 84484; 85025; 86592; 93005; 93306; 93880; A9579; C1785; C1898; J0690; J2250; J3010; J3370; J7050